=== PATIENT | male | born 1970 | race Hispanic/Latino ===

== ENCOUNTER 2017-11-06 16:57 | Inpatient (IN) | payer MEDICAID ==
[2017-11-06 17:05] VITALS: BMI 35.9
--- NOTE | 2017-11-06 17:31 | C.PDOC ---
History Of Present Illness 47 y/o male presents to ED requesting detox from heroin. Patient notes last use was 2 hours ago. Admits to cocaine use; denies other drug use. No other physical complaints at this time. Time Seen by Provider: 11/06/17 17:11 Chief Complaint (Nursing): Substance Abuse History Per: Patient History/Exam Limitations: no limitations Onset/Duration Of Symptoms: Hrs (last use 2 hours ago) Current Symptoms Are (Timing): Still Present Modifying Factor(s): Narcotics (heroin), Cocaine Recent travel outside of the [place]: No Past Medical History Reviewed: Historical Data, Nursing Documentation, Vital Signs Vital Signs: Last Vital Signs Temp 98.1 F 11/06/17 17:09 Pulse 90 11/06/17 17:09 Resp 19 11/06/17 17:09 BP 119/81 11/06/17 18:41 Pulse Ox 97 11/06/17 18:50 - Medical History PMH: No Chronic Diseases Surgical History: No Surg Hx Family History: States: No Known Family Hx Review Of Systems Psych: Positive for: Other (requesting heroin detox) Physical Exam - Physical Exam Appears: Well, No Acute Distress, Other (no signs of withdrawal) Skin: Normal Color, Warm, Dry Head: Atraumatic, Normacephalic Eye(s): bilateral: Normal Inspection, EOMI Neck: Normal ROM Chest: Symmetrical Cardiovascular: Rhythm Regular Respiratory: Normal Breath Sounds, No Wheezing Extremity: Bilateral: Atraumatic, Normal ROM Neurological/Psych: Oriented x3, Normal Speech ED Course And Treatment - Laboratory Results Result Diagrams: 11/06/17 17:48 11/06/17 17:48 O2 Sat by Pulse Oximetry: 97 (room air) Pulse Ox Interpretation: Normal Medical Decision Making Medical Decision Making: Plan: * blood work and UA ordered * Crisis notified Labs ordered and reviewed. In my clinical judgment patient is medically cleared and stable for psychiatric admission. beater worker helper contacted for evaluation. As per CW patient is to be admitted. Patient accepted to detox under Dr Sanchez service Disposition - Disposition Disposition: HOSPITALIZED Disposition Time: 18:50 Condition: STABLE - POA Present On Arrival: None - Clinical Impression Clinical Impression: Opiate dependence - Scribe Statement The provider has reviewed the documentation as recorded by the Scribe Zoe Bradshaw All medical record entries made by the Scribe were at my direction and personally dictated by me. I have reviewed the chart and agree that the record accurately reflects my personal performance of the history, physical exam, medical decision making, and the department course for this patient. I have also personally directed, reviewed, and agree with the discharge instructions and disposition. Decision To Admit - Pt Status Changed To: Hospital Disposition Of: Inpatient - Admit Certification Admit to Inpatient:: After my assessment, the patient will require hospitalization for at least two midnights. This is because of the severity of symptoms shown, intensity of services needed, and/or the medical risk in this patient being treated as an outpatient. - InPatient: Physician Admission Certification: I certify that this patient requires 2 or more midnights of care for the following reason:: patient admitted to service for detox of opiate - . Bed Request Type: Detox Admitting Physician: Aura Sanchez Patient Diagnosis: Opiate dependence
[2017-11-06 17:52] LABS: BASO # 0.1 K/uL (0.0-0.2); BASO % 1.8 % (0.0-2.0); EOS # 0.1 K/uL (0.0-0.7); EOS % 2.7 % (0.0-4.0); HEMATOCRIT 40.7 % (35.0-51.0); LYMPH # 1.8 K/uL (1.0-4.3); LYMPH % 34.3 % (20.0-40.0); MEAN CORPUSCULAR HEMOGLOBIN 32.8 pg (27.0-31.0); MEAN CORPUSCULAR HGB CONC 36.5 g/dL (33.0-37.0); MEAN PLATELET VOLUME 6.9 fL (7.2-11.7); MONO # 0.5 K/uL (0.0-0.8); MONO % 9.1 % (0.0-10.0); NRBC % 0.1 % (0.0-2.0); RED CELL DISTRIBUTION WIDTH 12.7 % (11.5-14.5); WHITE BLOOD COUNT 5.3 K/uL (4.8-10.8)
[2017-11-06 18:04] LABS: URINE BACTERIA RARE (<OCC); URINE BILIRUBIN NEGATIVE (NEGATIVE); URINE BLOOD NEGATIVE (NEGATIVE); URINE COLOR Yellow (YELLOW); URINE GLUCOSE (UA) NORMAL (Normal); URINE KETONE TRACE mg/dL (NEGATIVE); URINE LEUKOCYTE ESTERASE NEG Leu/uL (Negative); URINE PROTEIN NEGATIVE (NEGATIVE); WBC URINE 1 /hpf (0-5)
[2017-11-06 18:07] LABS: ALB/GLOB RATIO 1.5 (1.0-2.1); ALCOHOL SERUM < 10 mg/dl (0-10); ALKALINE PHOSPHATASE 63 U/L (38-126); ALT/SGPT 47 U/L (21-72); AST/SGOT 47 U/L (17-59); BILIRUBIN,TOTAL 1.3 mg/dL (0.2-1.3); BLOOD UREA NITROGEN 16 mg/dL (9-20); CALCIUM 9.2 mg/dl (8.6-10.4); CARBON DIOXIDE 31 mmol/L (22-30); CHLORIDE 97 mmol/L (98-107); GFR AFRICAN-AMERICAN > 60; GLUCOSE,RANDOM 89 mg/dL (75-110); POTASSIUM 3.6 mmol/L (3.6-5.2); SODIUM 137 mmol/L (132-148); TOTAL PROTEIN 7.6 g/dL (6.3-8.3)
--- NOTE | 2017-11-06 20:45 | PCM.BM ---
<Ludy Chou - Last Filed: 11/06/17 20:43> Treatment Plan Problems - Problems identified on initial assessmt potential for opiates withdrawal Date Initiated: 11/06/17 Time Initiated: 20:44 Assessment reference: NA Status: Active anxiety Date Initiated: 11/06/17 Time Initiated: 20:45 Assessment reference: NA Status: Active - Milieu Protocol Maintain good personal hygiene: daily Encourage regular showers, daily Remind patient to perform daily oral care, daily Assist patient to perform ADL's Conduct patient checks and document Observation sheet: Q15 minutes Maintain personal safety: every shift Educate patient to report safety concerns to staff, every shift Monitor environment for contraband/sharps Medication safety: Monitor for expected outcome, potential side effects: every shift, Assess barriers to learning: every shift, Assess readiness for medication education: every shift <Yesica Ortiz - Last Filed: 11/08/17 17:53> - Diagnosis (1) Opiate dependence Status: Acute Interventions: 11/08/17 17:53 * Assess 7x/week regarding severity of withdrawal * Educate regarding risks, benefits, side effects and alternatives of medications * Use Motivational Interviewing for abstinence * Use CBT for relapse prevention * Medication management for withdrawal symptoms * Encourage medication assisted treatment *
--- NOTE | 2017-11-07 14:21 | PCM.PSYCH ---
Initial Psychiatric Evaluation - Initial Psychiatric Evaluation Type of Admission: Voluntary Legal Status: Capacity Chief Complaint (in patient's own words): "I am using opioids and cocaine and need a treatment" History of Present Illness and Precipitating Events: This is a 47 year old male with a possible psychiatric history of heroin use disorder she had one prior detox admission at the [facility] in [place], [place] 12 years ago. The patient stated that he needed treatment for 4 opioids. He stated that he was in 10-14 bags on the daily basis for the last 20 years patient stated that he had multiple relapses in the past. CAGE questionnaire was positive for opioid use. Patient reported opioid withdrawal symptoms including abdominal pain excessive sweating's restless leg movement and joint pain he also reported nausea vomiting and diarrhea. He was aged using heroin IV daily. He started using at the age of 31. He denied psychiatric symptoms and depressive manic auditory and visual hallucinations and suicidal and homicidal ideation intent and plan Current Medications: Active Medications Generic Name Dose Route Start Last Admin Trade Name Freq PRN Reason Stop Dose Admin Clonidine HCl 0.1 mg 11/06/17 19:40 Catapres PO Q8 PRN COWS Score More or Equal to 5 Dicyclomine HCl 10 mg 11/06/17 19:42 Bentyl PO QID PRN stomach cramps, diarrhea Gabapentin 100 mg 11/07/17 10:00 11/07/17 13:41 Neurontin PO 100 mg TID KOFI Administration Ibuprofen 400 mg 11/06/17 19:43 Motrin Tab PO Q6H PRN Pain, Mild (1-3) Loperamide HCl 2 mg 11/06/17 19:40 Imodium PO Q8 PRN Diarrhea Ondansetron HCl 4 mg 11/06/17 19:40 Zofran Tab PO Q8 PRN Nausea/Vomiting Trazodone HCl 50 mg 11/06/17 19:43 Desyrel PO HS PRN Insomnia Past Psychiatric History - Past Psychiatric History Previous Treatment History: Inpatient Prior Professional Help: Pt reported one prior detox admission at [facility] in [place], [place]. Prior Psychiatric Treatment: Denied History of Abuse: Denied History of ETOH/Drug Use: Denied using alcohol He uses cocaine occasionally, last use was 7 days ago. History of Family Illness: Denied Pertinent Medical Hx (Current Medical&Sleep Prob, Allergies): Allergies Allergy/AdvReac Type Severity Reaction Status Date / Time lactose Allergy Verified 11/06/17 17:05 Penicillins Allergy Verified 11/06/17 17:05 Bp Pill PO BID 11/06/17 Ibuprofen [Motrin Tab] 800 mg PO BID 11/06/17 RX: Omeprazole 20 mg PO BID 11/06/17 RX: traMADol [Ultram] 50 mg PO TID 11/06/17 Review of Systems - Review of Systems All systems: reviewed and no additional remarkable complaints except - Constitutional Constitutional: Chills, Sweats, Weakness, Malaise - EENT Nose/Mouth/Throat: Nasal Congestion - Gastrointestinal Gastrointestinal: Bloating, Cramping, Diarrhea - Genitourinary Genitourinary: UNREMARKABLE - Reproductive: Male Reproductive:Male: UNREMARKABLE - Musculoskeletal Musculoskeletal: Muscle Cramps - Integumentary Integumentary: UNREMARKABLE - Neurological Neurological: UNREMARKABLE - Psychiatric Psychiatric: UNREMARKABLE - Endocrine Endocrine: UNREMARKABLE Mental Status Examination - Personal Presentation Personal Presentation: Looks stated age, Dressed appropriate to season, No apparent handicaps Additional comments: cooperative - Affect Affect: Constricted - Motor Activity Motor Activity: Calm - Reliability in Providing Information Reliability in Providing Information: Good - Speech Speech: Organized - Mood Mood: Anxious - Formal Thought Process Formal Thought Process: No Impairment - Hallucinations/Delusions Hallucinations: Other (Denied) Delusions: Other (Denied) - Obsessions/Compulsions Obsessions: No Compulsions: No - Cognitive Functions Attention/Concentration: Attentive Abstract Thinking: [place] Estimate of Intelligence: Average Judgement: Intact, as evidence by: Good judgement, Intact, as evidence by: Insight regarding need for hospitalization Memory: Recent intact, as evidence by: Ability to recall events of the day - Risk Risk: Withdrawal - Strength & Assets Inventory Strength & Assets Inventory: Family support, Education, Interests/hobbies, Cooperative - Limitations Limitations: Other (Chronic heroin use) DSM 5 DX - DSM 5 DSM 5 Diagnosis: Opioid use disorders severe, dependence, withdrawal symptoms Cocaine use disorder - Recommended/Plan of Treatment Treatment Recommendations and Plan of Treatment: Subutex /methadone taper detox Gabapentin for augmentation As needed meds and vitamins Attend groups and activities DC for abstinence and CBT for relapse prevention Support and psychoeducation Consider and encourage MAT~ Refer to after care 33 min Discharge Plan and Discharge Criteria: Referred to aftercare plan - Smoking Cessation Smoking Cessation Initiated: Yes
[2017-11-07] MEDS ORDERED: Buprenorphine Hydrochloride 2 mg SL ONE ×3 (18:09→19:20)
[2017-11-08] MEDS: Buprenorphine Hydrochloride 2 mg SL SCH (09:58)
--- NOTE | 2017-11-08 12:30 | PCM.PYCHPN ---
Psychiatric Progress Note - Psychiatric Progress Note Patient seen today, length of contact: 16 min Patient Chief Complaint: "Better today" Problems Identified/Issues Discussed: The pt is seen, chart reviewed, case discussed with staff. The pt is compliant with medications and reports no side-effects. Symptoms are improving but needs more time to stabilize. After care discussed, support and psychoeducation given. Medication Change: Yes (detox changes daily) Medical Record Reviewed: Yes Mental Status Examination - Cognitive Function Orientation: Person, Place, Situation, Time Memory: Intact Attention: WNL Concentration: WNL Association: WNL Fund of Knowledge: WNL - Mood Mood: Anxious - Affect Affect: Constricted - Speech Speech: Appropriate - Formal Thought Process Formal Thought Process: No Impairment - Suicidal Ideation Suicidal Ideation: No - Homicidal Ideation Homicidal Ideation: No Goal/Treatment Plan - Goal/Treatment Plan Need for Continued Stay: Discharge may exacerbated symptoms, Severe functional impairment Progress Toward Problem(s) and Goals/Treatment Plan: Subutex detox As needed medications Gabapentin for augmentation Attend groups and activities Supportive therapy and psychoeducation PA for abstinence CBT for relapse prevention Encourage MAT Refer to rehab or IOP Attend self-help groups as well 34 min
[2017-11-09] MEDS: Buprenorphine Hydrochloride 2 mg SL SCH (09:53)
--- NOTE | 2017-11-09 13:48 | PCM.PYCHPN ---
Psychiatric Progress Note - Psychiatric Progress Note Patient seen today, length of contact: 16 min Patient Chief Complaint: "I am feeling better" Problems Identified/Issues Discussed: The pt is seen, chart reviewed, case discussed with staff. The pt is compliant with medications and reports no side-effects. Symptoms are improving but needs more time to stabilize.~ After care discussed, support and psychoeducation given. DSM 5 Symptoms Update: opioid use disorder severe, dependence, withdrawal symptoms Medication Change: Yes (detox changes daily) Medical Record Reviewed: Yes Mental Status Examination - Cognitive Function Orientation: Person, Place, Situation, Time Memory: Intact Attention: WNL Concentration: WNL Association: [facility] Fund of Knowledge: [facility] Decription of patient's judgement and insights: good/good Addtional comments: he is calm and cooperative - Mood Mood: Anxious - Affect Affect: Constricted - Speech Speech: Appropriate - Formal Thought Process Formal Thought Process: No Impairment Psychotic Thoughts and Behaviors: denied - Suicidal Ideation Suicidal Ideation: No Plan: no plan nor intent - Homicidal Ideation Homicidal Ideation: No Plan: denied intent and plan Goal/Treatment Plan - Goal/Treatment Plan Need for Continued Stay: Discharge may exacerbated symptoms, Severe functional impairment Progress Toward Problem(s) and Goals/Treatment Plan: Subutex taper detox Gabapentin for augmentation As needed meds and vitamins Attend groups and activities [facility] for abstinence and CBT for relapse prevention Support and psychoeducation MAT Refer to after care Estimated Date of D/C: 11/11/17 - Smoking Cessation Smoking Cessation Initiated: Yes
[2017-11-10] MEDS: Buprenorphine Hydrochloride 2 mg SL SCH (09:44)
[2017-11-10 12:28] VITALS: BP 125/80; PULSE 87; RESP 19; TEMP 98.5; O2SAT 97
--- NOTE | 2017-11-10 16:50 | PCM.PYCHDC ---
Mental Status Examination - Mental Status Examination Orientation: Person, Place, Situation, Time Memory: Intact Mood: Neutral Affect: Other (Appropriate) Speech: Appropriate Attention: WNL Concentration: WNL Association: WNL Fund of Knowledge: WNL Formal Thought Process: No Impairment Description of patient's judgement and insight: Poor Psychotic Thoughts and Behaviors: None Suicidal Ideation: No Current Homicidal Ideation?: No Discharge Summary - Discharge Note Reason for Hospitalization: Opiate use disorder Laboratory Data: Reviewed Consultations:: List each consultation separately and include: 1. Reason for request. 2. Findings. 3. Follow-up Summary of Hospital Course include:: 1. Description of specific treatment plan utilized for patients during their course of treatmen. 2. Summarize the time- course for resolution of acute symptoms and/or regressed behaviors. 3. Describe issues identified and worked on during hospitalization. 4. Describe medication utilized. 5. Describe medical problems identified and treated. 6. Reassessment of suicide risk Summary of Hospital Course: This is a 47 year old male with a possible psychiatric history of heroin use disorder she had one prior detox admission at the [facility] in [place], [place] 12 years ago. The patient stated that he needed treatment for 4 opioids. He stated that he was in 10-14 bags on the daily basis for the last 20 years patient stated that he had multiple relapses in the past. CAGE questionnaire was positive for opioid use. Patient reported opioid withdrawal symptoms including abdominal pain excessive sweating's restless leg movement and joint pain he also reported nausea vomiting and diarrhea. He was aged using heroin IV daily. He started using at the age of 31. He denied psychiatric symptoms and depressive manic auditory and visual hallucinations and suicidal and homicidal ideation intent and plan During his stay in the hospital patient was treated with Subutex and other when necessary medications. Today patient got 4 mg of Subutex and decided to leave the hospital without completion of the detox. Education provided for the completion of detox, patient refused to stay and still wanted to leave. Patient was educated that in case of any adverse event including relapse, decompensation, overdose or of the patient, patient will be responsible for his actions. Patient understood and agreed with the above but still left the unit AMA. At the time of evaluation and discharge, patient was awake alert oriented 3, had no delusions, no auditory or visual hallucinations, no suicidal ideations or homicidal ideations. Patient was discharged in a stable condition. [facility] care after discharge from the hospital. - Final Diagnosis (DSM 5) Condition upon Discharge: STABLE Disposition: AGAINST MEDICAL ADVICE - Smoking Cessation Smoking Cessation Medication prescribed: No - Antipsychotic Medications Pt discharged on 2 or more routine antipsychotic medications: No
== END 2017-11-10 12:15 | disposition left against medical advice (07) | DRG 743 ==
LOC: C.ER 16:57 → C.7D 18:50
PROVIDERS: ADMIT Psychiatry & Neurology Psychiatry; ATTEND Psychiatry & Neurology Psychiatry
DX: F11.23 Opioid dependence with withdrawal (principal); F14.10 Cocaine abuse, uncomplicated; G25.81 Restless legs syndrome; M25.50 Pain in unspecified joint